=== PATIENT | female | born 1950 | race Asian ===

== ENCOUNTER 2017-11-05 21:09 | Inpatient (IN) | payer OTHER ==
[~2017-11-05] VITALS: Ht 160 cm; Wt 77.7 kg
[2017-11-05 22:40] LABS: BASOPHIL % 0.4 % (0-2); PLATELET COUNT 291 x10^3mcL (130-400); RED CELL DISTRIBUTION WIDTH 12.8 % (11.5-14.5)
[2017-11-05 23:10] LABS: CALCIUM 9.5 mg/dL (8.5-10.1); CARBON DIOXIDE 27.8 mmol/L (21-32); CREATININE SERUM 1.7 mg/dL (0.6-1.0); POTASSIUM SERUM 4.5 mmol/L (3.5-5.1)
[2017-11-05 23:18] LABS: ALBUMIN 3.5 g/dL (3.4-5.0); BILIRUBIN TOTAL 0.5 mg/dL (0.20-1.00); TOTAL PROTEIN, SERUM 7.8 g/dL (6.4-8.2)
[2017-11-06] MEDS ORDERED: FLO4 PO (00:10)
[2017-11-06] MEDS ORDERED: LEVOFLOXACIN500 M1 PO (00:10)
[2017-11-06] MEDS ORDERED: LOSARTAN POTAS100 M1 PO (00:10)
[2017-11-06] MEDS ORDERED: ACETAMINOPHEN A1 TAB PO (00:11)
[2017-11-06] MEDS ORDERED: ONDANSETRON4 M3 PO (00:12)
[2017-11-06 00:21] LABS: microscopic required? YES; urine erythrocyte 1+ (NEGATIVE)
[2017-11-06] MEDS ORDERED: TENORMIN (00:46)
[2017-11-06 01:13] VITALS: BP 137/84
[2017-11-06 01:21] VITALS: Ht 160 cm; Wt 77.7 kg
[2017-11-06 05:33] VITALS: BP 100/62
[2017-11-06 08:44] VITALS: BP 115/69
[2017-11-06 12:29] VITALS: BP 108/64
[2017-11-06 16:44] VITALS: BP 108/70
[2017-11-06 21:21] VITALS: BP 115/69
[2017-11-07 05:50] VITALS: BP 124/78
[2017-11-07 09:32] VITALS: BP 106/62
[2017-11-07 12:33] LABS: BASOPHIL % 0.4 % (0-2); PLATELET COUNT 279 x10^3mcL (130-400); RED CELL DISTRIBUTION WIDTH 12.9 % (11.5-14.5)
[2017-11-07 13:54] VITALS: BP 120/82
[2017-11-07 13:56] LABS: CALCIUM 8.8 mg/dL (8.5-10.1); CARBON DIOXIDE 25.5 mmol/L (21-32); CREATININE SERUM 1.6 mg/dL (0.6-1.0); POTASSIUM SERUM 4.9 mmol/L (3.5-5.1)
[2017-11-07 16:53] VITALS: BP 92/56
[2017-11-07 21:02] VITALS: BP 105/61
[2017-11-08 06:27] VITALS: BP 133/85
[2017-11-08 08:34] VITALS: BP 126/79
[2017-11-08 13:55] VITALS: BP 119/63
[2017-11-08 16:42] VITALS: BP 115/75
[2017-11-08 20:59] VITALS: BP 113/69
[2017-11-09 05:21] VITALS: BP 100/64
[2017-11-09 08:53] VITALS: BP 112/72
[2017-11-09 09:46] VITALS: BP 112/72
== END 2017-11-09 10:36 | disposition home or self-care (01) | DRG 669 ==
LOC: ED 21:09 → DU 11-06 00:08
PROVIDERS: Emergency Medicine; Internal Medicine; Urology
PROC: 0T768DZ Dilation of Right Ureter with Intraluminal Device, Via Natural or Artificial Opening Endoscopic (ICD-10-PCS; 2017-11-08)
PROC: BT1D1ZZ Fluoroscopy of Right Kidney, Ureter and Bladder using Low Osmolar Contrast (ICD-10-PCS; 2017-11-08)
PROC: 0TC68ZZ Extirpation of Matter from Right Ureter, Via Natural or Artificial Opening Endoscopic (ICD-10-PCS; principal; 2017-11-08 12:00)
DX: N13.2 Hydronephrosis with renal and ureteral calculous obstruction (principal); N17.9 Acute kidney failure, unspecified; N39.0 Urinary tract infection, site not specified; I12.9 Hypertensive chronic kidney disease with stage 1 through stage 4 chronic kidney disease, or unspecified chronic kidney disease; E11.22 Type 2 diabetes mellitus with diabetic chronic kidney disease; N18.9 Chronic kidney disease, unspecified; Z79.4 Long term (current) use of insulin; Z87.442 Personal history of urinary calculi; Z68.30 Body mass index [BMI] 30.0-30.9, adult
CPT/HCPCS: 82962; 83880; C1769; C2625; J0690; J1885; J2405; J2704; J3010; J3490; J7030; Q9967